=== PATIENT | male | born 1995 | race Caucasian/White ===

== ENCOUNTER 2017-12-14 21:40 | Emergency (ER) | payer SELFPAY ==
[2017-12-14 23:26] VITALS: BP 101/59
== END 2017-12-14 23:26 | disposition home or self-care (01) ==
LOC: ED 21:40
DX: S61.411A Laceration without foreign body of right hand, initial encounter (principal); W25.XXXA Contact with sharp glass, initial encounter; Y93.89 Activity, other specified; Y92.89 Other specified places as the place of occurrence of the external cause; Y99.8 Other external cause status
CPT/HCPCS: 90715; J2001; Q0092